=== PATIENT | male | born 1970 | race African-American/Black ===

== ENCOUNTER 2016-12-22 12:57 | Emergency (ER) | payer MEDICAID, OTHER ==
[~2016-12-22] VITALS: Ht 182.9 cm; Wt 68.0 kg
[~2016-12-22 12:57] MED LIST: NKM
[2016-12-22 13:11] VITALS: BP 126/82
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
[2016-12-22 14:09] LABS: BASOPHILS % (AUTO) 1.8 % (0.0-2.0); EOSINOPHILS % (AUTO) 1.7 % (0.0-3.0); LYMPHOCYTES % (AUTO) 46.4 % (20.0-45.0); MEAN CORPUSCULAR HEMOGLOBIN 32.5 PG (27.0-31.0); MEAN CORPUSCULAR HGB CONC 32.3 G/DL (32.0-36.0); MEAN CORPUSCULAR VOLUME 100 FL (80-99); MONOCYTES % (AUTO) 9.7 % (1.0-10.0); NEUTROPHILS % (AUTO) 40.5 % (45.0-75.0); PLATELET COUNT 242 K/UL (150-450); RED BLOOD COUNT 4.97 M/UL (4.70-6.10); WHITE BLOOD COUNT 3.8 K/UL (4.8-10.8)
[2016-12-22 14:23] LABS: ALANINE AMINOTRANSFERASE 23 U/L (3-41); ALBUMIN/GLOBULIN RATIO 0.9 (1.0-2.7); ANION GAP 13 (5-15); ASPARTATE AMINO TRANSFERASE 38 U/L (5-40); CALCIUM 9.6 mg/dL (8.6-10.2); CARBON DIOXIDE 27 mEQ/L (20-30); CHLORIDE 101 mEQ/L (98-107); CREATININE 1.1 mg/dL (0.7-1.2); GLOMERULAR FILTRATION RATE > 60 mL/min (>60); HEMOLYSIS 9; POTASSIUM 3.9 mEQ/L (3.4-4.9); SODIUM 141 mEQ/L (135-145)
[2016-12-22 16:18] VITALS: BP 126/82
--- NOTE | 2016-12-23 10:01 | Diagnostic Imaging Report ---
Indication: Neck pain Technique: CT cervical spine was performed utilizing automated exposure control without intravenous contrast material. Axial and coronal images were generated. CT dose: Total DLP 396 mGycm; CTDI vol 19.5 mGy Comparison: None Findings: There is no acute fracture. There is degenerative approximate 3 mm retrolisthesis of C4 on C5. There is slight reversal of the cervical lordosis. 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 The cervical cord is not adequately evaluated by CT. At the C2/C3 level, there is no gross central or neuroforaminal stenosis. At the C3/C4 level, there is mild disc space narrowing and a mild posterior disc osteophyte complex with central stenosis. Uncovertebral spurring results in mild right and moderate to severe left neuroforaminal stenosis. Degenerative facet arthropathy is present, left greater than right. At the C4/C5 level, there is again grade 1 retrolisthesis of C4 on C5. There is moderate to severe disc space narrowing with a posterior disc osteophyte complex with central stenosis. Uncovertebral spurring results in severe bilateral neuroforaminal stenosis. At the C5/C6 level, there is moderate to severe disc space narrowing with a posterior disc osteophyte complex and central stenosis. Uncovertebral spurring results in severe bilateral neuroforaminal stenosis. At the C6/C7 level, there is moderate to severe disc space narrowing with a posterior disc osteophyte complex with central stenosis. Uncovertebral spurring results in severe bilateral neuroforaminal stenosis. At the C7/T1 level, there is no gross central stenosis. Prevertebral soft tissues are within normal limits. The visualized lung apices are clear. Impression: No acute fracture. 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 Moderate to severe degenerative cervical spondylosis with multilevel central and neuroforaminal stenosis as above. Correlation with MRI recommended as indicated. Grade 1 degenerative retrolisthesis of C4 on C5. The CT scanner at [facility] is accredited by the [employer] and the scans are performed using protocols designed to limit radiation exposure to as low as reasonably achievable to attain images of sufficient resolution adequate for diagnostic evaluation.
--- NOTE | 2016-12-23 10:04 | Diagnostic Imaging Report ---
Indication: Head pain Technique: Continuous helical CT scanning of the head was performed utilizing automated exposure control without intravenous contrast material. Axial and coronal reconstructions were obtained. Comparison: 06/28/11 CT dose: Total DLP 1368 mGycm; CTDI vol 70.4 mGy Findings: There is no acute intracranial hemorrhage, mass effect or cortical edema. The ventricles, cisterns and sulci are stable. The posterior fossa and fourth ventricle are unremarkable. Sellar and suprasellar regions are grossly unremarkable. Visualized mastoid air cells and paranasal sinuses are unremarkable. No focal lesions of the bony calvarium or soft tissues of the scalp are seen. Impression: No evidence of acute intracranial hemorrhage, mass effect or cortical edema. MRI may be obtained for more sensitive evaluation as clinically indicated. The CT scanner at [facility] is accredited by the [employer] and the scans are performed using protocols designed to limit radiation exposure to as low as reasonably achievable to attain images of sufficient resolution adequate for diagnostic evaluation.
== END 2016-12-22 15:45 | disposition left against medical advice (07) ==
LOC: EMR 13:30
DX: R26.9 Unspecified abnormalities of gait and mobility (principal); M47.812 Spondylosis without myelopathy or radiculopathy, cervical region; R51 Headache
CPT/HCPCS: 36415; 70450; 72125; 80053; 85025; 99284